=== PATIENT | male | born 1980 | race Caucasian/White ===

== ENCOUNTER 2018-03-09 13:06 | Observation (INO) ==
--- NOTE | 2018-03-09 13:09 | ED ---
HPI General Chief complaint: Chest Pain Stated complaint: Chest pain Time Seen by Provider: 03/09/18 13:08 Source: patient Mode of arrival: EMS Limitations: no limitations History of Present Illness HPI narrative: 37-year-old male with no significant medical history presents emergency department for evaluation of chest pain and palpitations. Patient states that he has been drinking alcohol and smoking [place] the [place] when his heart began to palpitate. He thought maybe he was having an anxiety attack but it persisted and became mildly short of breath and he had a substernal chest pain more to the left. It does not radiate anywhere. It has persisted. He denies any nausea or vomiting. He denies any diaphoresis. He tells me that "something is wrong with his heart" but he is uncertain what. He tells me something with his mitral valve he thinks. He denies any recent drug use. States he has a long-standing history of cocaine and alcohol use but has not used in over 10 years. Denies IV drug use. Denies any recent illnesses, fever, or chills. He has no other symptoms to report at this time. Related Data Home Medications Medication Instructions Recorded Confirmed No Known Home Medications 03/09/18 03/09/18 Allergies Allergy/AdvReac Type Severity Reaction Status Date / Time No Known Allergies Allergy Unverified 03/09/18 13:14 Review of Systems Except as stated in HPI: all other systems reviewed are negative PMFSH History History Provided By: Patient Medical History Medical History HTN (hypertension) (Acute) Social History Social History Second Hand Smoke Exposure: Yes Smoking Status: Current every day smoker Tobacco Type: Cigarettes How Often Do You Have a Drink Containing Alcohol: 4 or more times a week Recent Travel in [facility] within the Last 8 Weeks: No Exam Narrative Exam Narrative: GENERAL: Well-nourished male patient, in no acute distress. SKIN: Focused skin assessment warm/dry. HEAD: Atraumatic. Normocephalic. EYES: Pupils equal and round. No scleral icterus. No injection or drainage. ENT: No nasal bleeding or discharge. Mucous membranes pink and moist. NECK: Trachea midline. No JVD. CARDIOVASCULAR: Elevated rate and rhythm. No murmur appreciated. RESPIRATORY: No accessory muscle use. Clear to auscultation. Breath sounds equal bilaterally. GASTROINTESTINAL: Abdomen soft, non-tender, nondistended. Hepatic and splenic margins not palpable. MUSCULOSKELETAL: No obvious deformities. No clubbing. No cyanosis. No edema. NEUROLOGICAL: Awake and alert. No obvious cranial nerve deficits. Motor grossly within normal limits. Normal speech. PSYCHIATRIC: Appropriate mood and affect; insight and judgment normal. Course Initial Documented Vital Signs Pulse Rate 95 H 03/09/18 13:12 Respiratory Rate 19 03/09/18 13:12 Blood Pressure 122/65 03/09/18 13:12 Pulse Oximetry 94 L 03/09/18 13:12 Last Documented Vital Signs Pulse Rate 95 H 03/09/18 13:12 Respiratory Rate 19 03/09/18 13:12 Blood Pressure 122/65 03/09/18 13:12 Pulse Oximetry 96 03/09/18 13:16 Medical Decision Making MDM Narrative Medical decision making narrative: 37-year-old male presents emergency department for evaluation of chest pain. Patient appears well. He is moderately anxious. He is given aspirin. Lab work is reviewed and without acute concern. Patient will be admitted observation of the chest pain center for further evaluation and disposition per them. Differential Diagnosis Differential Diagnosis: ACS vs electrolyte abnormality versus pleuritic pain versus chest wall pain Medical Records Medical records reviewed: Yes I reviewed the patient's medical records. Lab Data Lab results reviewed: Yes I reviewed the patient's lab results. Result diagrams: 03/09/18 13:20 03/09/18 13:20 Lab Results 03/09/18 03/09/18 03/09/18 Range/Units 13:20 13:20 13:20 WBC 6.9 (4.0-11.0) th/mm3 RBC 4.73 (4.50-5.90) mil/mm3 Hgb 15.7 (13.0-17.0) gm/dL Hct 44.5 (39.0-51.0) % MCV 94.0 (80.0-100.0) fL MCH 33.2 (27.0-34.0) pg MCHC 35.4 (32.0-36.0) % RDW 12.5 (11.6-17.2) % Plt Count 262 (150-450) th/mm3 MPV 6.8 L (7.0-11.0) fL Neut % (Auto) 52.9 (16.0-70.0) % Lymph % (Auto) 38.2 (9.0-44.0) % Bleckley % (Auto) 7.5 (0.0-8.0) % Eos % (Auto) 0.3 (0.0-4.0) % Baso % (Auto) 1.1 (0.0-2.0) % Neut # (Auto) 3.6 (1.8-7.7) th/mm3 Lymph # (Auto) 2.6 (1.0-4.8) th/mm3 Bleckley # (Auto) 0.5 (0.0-0.9) th/mm3 Eos # (Auto) 0.0 (0.0-0.4) th/mm3 Baso # (Auto) 0.1 (0.0-0.2) th/mm3 WBC Differential . Differential Comment Auto diff final PT 10.5 (9.8-11.6) sec INR 1.0 Ratio APTT 28.7 (24.3-30.1) sec Sodium 147 H (136-145) meq/L Potassium 3.7 (3.5-5.1) meq/L Chloride 113 H (98-107) meq/L Carbon Dioxide 25.1 (21.0-32.0) meq/L Anion Gap 9 (5-15) meq/L BUN 13 (7-18) mg/dL Creatinine 1.28 (0.60-1.30) mg/dL Estimated GFR 63 L (>89) mL/min Random Glucose 90 (74-106) mg/dL Calcium 8.2 L (8.5-10.1) mg/dL Total Creatine Kinase 236 (39-308) U/L CK-MB (CK-2) 1.7 (0.5-3.6) ng/mL Troponin I Less than 0.02 L (0.02-0.05) ng/mL Imaging Data Radiologist's impression: Chest X-Ray 03/09/18 13:14 CONCLUSION: No active disease. Discharge Plan Discharge Disposition Patient Disposition: 30 Still Patient Discharge Condition Condition: Stable Discharge Details Diagnosis: Chest pain Physicians Team ED Provider: Preston Burnett ED Midlevel Provider: Elodia Borja Primary Care Provider: Primary Care Kalani Michelle Attending Provider: Kris Baeza Status ED Status: Admitted Observation Patient
[2018-03-09] MEDS ORDERED: Aspirin 325 MG Tablet PO ONE (13:14)
[2018-03-09 13:31] LABS: Baso # (Auto) 0.1 th/mm3 (0.0-0.2); Baso % (Auto) 1.1 % (0.0-2.0); Eos % (Auto) 0.3 % (0.0-4.0); Hematocrit 44.5 % (39.0-51.0); Hemoglobin 15.7 gm/dL (13.0-17.0); Lymph # (Auto) 2.6 th/mm3 (1.0-4.8); Lymph % (Auto) 38.2 % (9.0-44.0); Mean Corpuscular HGB Conc 35.4 % (32.0-36.0); Mean Corpuscular Hemoglobin 33.2 pg (27.0-34.0); Mean Platelet Volume 6.8 fL (7.0-11.0); Mono # (Auto) 0.5 th/mm3 (0.0-0.9); Mono % (Auto) 7.5 % (0.0-8.0); Neut # (Auto) 3.6 th/mm3 (1.8-7.7); Neut % (Auto) 52.9 % (16.0-70.0); Platelet Count 262 th/mm3 (150-450); Red Blood Count 4.73 mil/mm3 (4.50-5.90); Red Cell Distribution Width 12.5 % (11.6-17.2); White Blood Count 6.9 th/mm3 (4.0-11.0)
[2018-03-09 13:42] LABS: Activated Partial Thrombo Time 28.7 sec (24.3-30.1); Prothrombin Time 10.5 sec (9.8-11.6)
[2018-03-09 14:08] LABS: Anion Gap 9 meq/L (5-15); Blood Urea Nitrogen 13 mg/dL (7-18); Calcium 8.2 mg/dL (8.5-10.1); Carbon Dioxide 25.1 meq/L (21.0-32.0); Chloride 113 meq/L (98-107); Glomerular Filtration Rate 63 mL/min (>89); Glucose,Random 90 mg/dL (74-106); Potassium 3.7 meq/L (3.5-5.1); Sodium 147 meq/L (136-145)
--- NOTE | 2018-03-09 14:11 | XR ---
EXAM DATE: 03/09/2018 1:43 PM EDT AGE/SEX: 37 years / Male INDICATIONS: . Chest Pain CLINICAL DATA: This is the patient's initial encounter. Patient reports that signs and symptoms have been present for 1 day and indicates a pain score of 7/10. MEDICAL/SURGICAL HISTORY: None. None. COMPARISON: No prior exams available for comparison. FINDINGS: PA and lateral views of the chest demonstrate the lungs to be symmetrically aerated without evidence of mass, infiltrate or effusion. The cardiomediastinal contours are unremarkable. Osseous structures are intact. CONCLUSION: No active disease. Electronically signed by: Cullen Willoughby MD 03/09/2018 2:10 PM EDT
[2018-03-09 14:12] LABS: Creatine Kinase 236 U/L (39-308)
[2018-03-09 14:24] LABS: Creatine Kinase MB 1.7 ng/mL (0.5-3.6)
[2018-03-09 14:58] VITALS: O2SAT 96
--- NOTE | 2018-03-09 15:17 | P.HPCA ---
History of Present Illness Primary Care Physician: No Primary Care Physician Chief Complaint: Palpations History of Present Illness: 37-year-old male with no significant medical history presents emergency room for further evaluation of palpitations. States he has been out drinking all evening and finished drinking at 7 AM. Proceeded to the beach when he experienced palpitations. Endorses similar pain in the past [facility] Was told he had something wrong with his heart. 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 Endorses he drinks 1 pint of vodka daily and smokes 1 pack cigarettes daily. Denies any known coronary artery disease. Reports Lexiscan completed last year and was told "something was wrong with my heart." He is also concerned about left sided numbness and tingling. Intermittent for months, today seems to be worse. Described as an burning, numbness sensation. Denies weakness of area. Endorse past left shoulder surgery, but does not feel discomfort could be related to the injury but fears discomfort in cardiac related. Left arm numbness constant for 24 hours, made better when he elevates arm. - Diagnosis (1) Heart palpitations (2) Alcohol abuse (3) Tobacco abuse (4) Radiculopathy PMFSH - History History Provided By: Patient - Medical History Medical History: Medical History (Last Updated 03/09/18 @ 16:53 by JASON Huitron) HTN (hypertension) Hepatitis C - Tobacco History Second Hand Smoke Exposure: Yes Tobacco Use In Past 30 Days: Yes Smoking Status: Current every day smoker Tobacco Type: Cigarettes Cigarettes Per Day: 1 - Alcohol History How Often Do You Have a Drink Containing Alcohol: 4 or more times a week (1 pint of vodka daily, last drank 0700 am.) - Substance Use Type Crack/Cocaine Type: COCAINE Status: Sustained Remission (quit cocaine 10 years ago.) - Travel History Recent Travel in the [place] Within the Last 8 Weeks: No - Immunization History Tetanus Immunization: Unsure Hx Influenza Vaccine This Season: No Medications and Allergies Active Medications: Active Medications Nitroglycerin (Nitrostat Sl) 0.4 mg SL Q5M PRN PRN Reason: CHEST PAIN Allergies Allergy/AdvReac Type Severity Reaction Status Date / Time No Known Allergies Allergy Unverified 03/09/18 13:14 Home Medications Medication Instructions Recorded Confirmed Type No Known Home Medications 03/09/18 03/09/18 History Exam Vital signs: Vital Signs 03/09/18 13:12 03/09/18 13:16 Pulse Rate 95 H Respiratory Rate 19 Blood Pressure 122/65 Pulse Oximetry 94 L 96 Intake & Output 03/08/18 03/09/18 03/09/18 18:59 06:59 18:59 Weight 106.633 kg Narrative: GENERAL: Alert WN, WD, NAD, male in no acute distress who request to leave blanket over his head during exam. Sarcastic, rude, and disrespectful appears intoxicated. HEAD: NC, AT NECK: Supple, no masses, trachea midline CV: RRR, without murmur, rub, gallop, no JVD. No carotid bruits. Chest wall nontender with palpation. RESP: Clear lungs throughout bilateral, no crackles, wheeze, rhonchi, symmetrical chest rise, nonlabored, able to speak in full sentences ABD: Soft, NT, ND, no masses, positive bowel tones EXT: Pulses +2x4, no dependent edema MS: Normal tone x4 extremities, nontender, no obvious deformities, full range of motion NEURO: CN II through CN XII grossly intact, motor strength 5/5 PSYCH: A+O x3, flat affect, appropriate speech, bizarre mood, questionable insight and judgment SKIN: Normal turgor, normal texture, no lesions, no rashes, brisk cap refill, even hair distribution, multiple tattoos, unkempt Results 03/09/18 13:20 03/09/18 13:20 Cardiac Enzymes 03/09/18 Range/Units 13:20 CK-MB (CK-2) 1.7 (0.5-3.6) ng/mL Troponin I Less than 0.02 L (0.02-0.05) ng/mL Coagulation 03/09/18 Range/Units 13:20 PT 10.5 (9.8-11.6) sec APTT 28.7 (24.3-30.1) sec CBC 03/09/18 Range/Units 13:20 WBC 6.9 (4.0-11.0) th/mm3 RBC 4.73 (4.50-5.90) mil/mm3 Hgb 15.7 (13.0-17.0) gm/dL Hct 44.5 (39.0-51.0) % Plt Count 262 (150-450) th/mm3 Neut # (Auto) 3.6 (1.8-7.7) th/mm3 Lymph # (Auto) 2.6 (1.0-4.8) th/mm3 Ellis # (Auto) 0.5 (0.0-0.9) th/mm3 Eos # (Auto) 0.0 (0.0-0.4) th/mm3 Baso # (Auto) 0.1 (0.0-0.2) th/mm3 Comprehensive Metabolic Panel 03/09/18 Range/Units 13:20 Sodium 147 H (136-145) meq/L Potassium 3.7 (3.5-5.1) meq/L Chloride 113 H (98-107) meq/L Carbon Dioxide 25.1 (21.0-32.0) meq/L BUN 13 (7-18) mg/dL Creatinine 1.28 (0.60-1.30) mg/dL Calcium 8.2 L (8.5-10.1) mg/dL Intake and Output 03/09/18 03/09/18 03/09/18 06:59 14:59 22:59 Other: Weight 106.633 kg Patient Weight 03/10/18 06:59 Weight 106.633 kg EKG interpretations - EKG EKG results cardiology: sinus rhythm, normal axis, normal QRS, normal ST/T Caprini VTE Risk Assessment Caprini VTE Risk Assessment: No/Low Risk (score <= 1) Caprini Risk Assessment Model: Point Value = 1 Point Value = 2 Point Value = 3 Point Value = 5 Age 41-60 Minor surgery BMI > 25 kg/m2 Swollen legs Varicose veins or History of unexplained or recurrent spontaneous Oral contraceptives or hormone replacement Sepsis (< 1 month) Serious lung disease, including pneumonia (< 1 month) Abnormal pulmonary function Acute myocardial infarction Congestive heart failure (< 1 month) History of inflammatory bowel disease Medical patient at bed rest Age 61-74 Arthroscopic surgery Major open surgery (> 45 min) Laparoscopic surgery (> 45 min) Malignancy Confined to bed (> 72 hours) Immobilizing plaster cast Central venous access Age >= 75 History of VTE Family history of VTE Factor V Leiden Prothrombin [id number] Lupus anticoagulant Anticardiolipin antibodies Elevated serum homocysteine Heparin-induced thrombocytopenia Other congenital or acquired thrombophilia Stroke (< 1 month) Elective arthroplasty Hip, pelvis, or leg fracture Acute spinal cord injury (< 1 month) Prophylaxis Regimen: Total Risk Factor Score Risk Level Prophylaxis Regimen 0-1 Low Early ambulation 2 Moderate Order ONE of the following: *Sequential Compression Device (SCD) *Heparin 5000 units SQ BID 3-4 Higher Order ONE of the following medications: *Heparin 5000 units SQ TID *Enoxaparin/Lovenox 40 mg SQ daily (WT < 150 kg, CrCl > 30 mL/min) *Enoxaparin/Lovenox 30 mg SQ daily (WT < 150 kg, CrCl > 10-29 mL/min) *Enoxaparin/Lovenox 30 mg SQ BID (WT < 150 kg, CrCl > 30 mL/min) AND/OR *Sequential Compression Device (SCD) 5 or more Highest Order ONE of the following medications: *Heparin 5000 units SQ TID (Preferred with Epidurals) *Enoxaparin/Lovenox 40 mg SQ daily (WT < 150 kg, CrCl > 30 mL/min) *Enoxaparin/Lovenox 30 mg SQ daily (WT < 150 kg, CrCl > 10-29 mL/min) *Enoxaparin/Lovenox 30 mg SQ BID (WT < 150 kg, CrCl > 30 mL/min) AND *Sequential Compression Device (SCD) Assessment and Plan - Assessment (1) Heart palpitations Code(s): R00.2 - Palpitations Status: Acute Plan: Admitted to chest pain center. Continue ruling out ACS, although discomfort is not digestive of an anginal component. Seen and evaluated by Dr. Kris Baeza. Obtain cardiac medical records from [facility]. Monitor on telemetry overnight. Further evaluation in a.m. No plans for further cardiac testing at this time. Patient agreeable to plan of care, although has stated multiple times during interview he thinks he is fine and would like to go home. Made aware if he chooses to leave he will be signing out AGAINST MEDICAL ADVICE. Verbalized understanding and agrees to stay at this time. (2) Alcohol abuse Code(s): F10.10 - Alcohol abuse, uncomplicated Status: Chronic Plan: Counseled on alcohol abuse. Reinforced needed. CIWA scale with medications. Drinks at least 1 pink vodka daily, last drink 0700. (3) Tobacco abuse Code(s): Z72.0 - Tobacco use Status: Chronic Plan: Strongly encouraged and stressed importance of tobacco cessation. Instructed to quit smoking. (4) Radiculopathy Code(s): M54.10 - Radiculopathy, site unspecified Status: Acute Plan: No acute findings. Follow up with a primary care provider for further evaluation. (4) Radiculopathy Qualifiers: Spinal region: unspecified Qualified Code(s): M54.10 - Radiculopathy, site unspecified
[2018-03-09] MEDS ORDERED: Haloperidol Inj 5 MG/ML Ampul IV.PUSH PRN (16:44)
[2018-03-09] MEDS ORDERED: LORazepam 1 MG Tablet PO PRN (16:44)
[2018-03-09 17:19] LABS: Creatine Kinase 217 U/L (39-308)
[2018-03-09 21:36] LABS: Creatine Kinase 211 U/L (39-308)
--- NOTE | 2018-03-10 09:13 | P.PNCA ---
Subjective Interval history: No complaints overnight. Slept well. Physical Exam Vital signs: Vital Signs 03/09/18 13:12 03/09/18 13:16 03/09/18 16:00 Temperature 98.1 F Pulse Rate 95 H 83 Respiratory Rate 19 18 Blood Pressure 122/65 132/84 Pulse Oximetry 94 L 96 98 03/09/18 19:19 03/09/18 19:45 03/09/18 23:27 Temperature 98.2 F 97.6 F Pulse Rate 88 85 67 Respiratory Rate 18 18 Blood Pressure 119/56 L 132/73 Pulse Oximetry 95 96 03/10/18 03:05 03/10/18 03:15 03/10/18 07:09 Temperature 97.6 F Pulse Rate 69 59 L 79 Respiratory Rate 18 Blood Pressure 126/72 Pulse Oximetry 96 03/10/18 07:52 Temperature 98.2 F Pulse Rate 65 Respiratory Rate 20 Blood Pressure 136/80 Pulse Oximetry Intake & Output 03/09/18 03/10/18 03/10/18 18:59 06:59 18:59 Intake Total 800 / 800 Balance 800 / 800 Weight 106.594 kg Intake: Oral 800 / 800 Other: # Voids 1 2 Date of Last Bowel Movement 03/08/18 Weight On Admission 106.633 kg Narrative: male easily awakens from sleep. No acute distress. Regular rate and rhythm, no murmur rubs or gallops. Telemetry reviewed from overnight, no arrhythmias identified. - Constitutional no acute distress Assessment and Plan - Assessment (1) Heart palpitations Code(s): R00.2 - Palpitations Status: Acute Plan: Admitted chest pain center. Previously seen evaluated by Dr. Kris Baeza. ACS ruled out 3 sets of EKGs. Telemetry reviewed did not show any cardiac arrhythmias. Unfortunately was unable to obtain medical records from Dr. [facility] in [place]. Instructed to follow-up with supply crib attendant in [place] upon returning home. Verbalized understanding and agreeable to plan of care. (2) Alcohol abuse Code(s): F10.10 - Alcohol abuse, uncomplicated Status: Chronic Plan: Counseled on alcohol abuse. Reinforced needed. CIWA scale with medications. (3) Tobacco abuse Code(s): Z72.0 - Tobacco use Status: Chronic Plan: Strongly encouraged and stressed importance of tobacco cessation. Instructed to quit smoking.
--- NOTE | 2018-03-10 12:59 | ECG ---
Date Performed: 03/09/2018 Time Performed: 16:42:03 PTAGE: 37 years EKG: Sinus rhythm MODERATE INTRAVENTRICULAR CONDUCTION DELAY BORDERLINE ECG PREVIOUS TRACING : 03/09/2018 13.13 Since previous tracing, no significant change noted DOCTOR: Kris Baeza Interpretating Date/Time 03/10/2018 12:58:51
--- NOTE | 2018-03-10 12:59 | ECG ---
Date Performed: 03/09/2018 Time Performed: 19:53:23 PTAGE: 37 years EKG: Sinus rhythm POSSIBLE RIGHT VENTRICULAR CONDUCTION DELAY BORDERLINE ECG PREVIOUS TRACING : 03/09/2018 16.42 Since previous tracing, no significant change noted DOCTOR: Kris Baeza Interpretating Date/Time 03/10/2018 12:57:47
--- NOTE | 2018-03-10 13:00 | ECG ---
Date Performed: 03/09/2018 Time Performed: 13:13:52 PTAGE: 37 years EKG: Sinus rhythm INCOMPLETE RIGHT BUNDLE BRANCH BLOCK MODERATE VOLTAGE CRITERIA FOR LVH, CONSIDER NORMAL VARIANT CARLITAD CARE [facility] AT [facility] ECG INTERPRETATION BASED ON A DEFAULT AGE OF 40 YEARS NO PREVIOUS TRACING DOCTOR: Kris Baeza Interpretating Date/Time 03/10/2018 12:59:33
[2018-03-12 19:33] VITALS: BP 136/80; PULSE 63; RESP 20
[2018-03-12 19:46] VITALS: TEMP 98.2
== END 2018-03-10 15:03 | disposition home or self-care (01) ==
LOC: NEPFCDU 13:06 → NEPE 13:06 → NEDA 13:06 → NEPFCDU 16:05
DX: R20.0 Anesthesia of skin; I10 Essential (primary) hypertension; R06.02 Shortness of breath; F17.210 Nicotine dependence, cigarettes, uncomplicated; R07.9 Chest pain, unspecified; R00.2 Palpitations; F14.11 Cocaine abuse, in remission; B19.20 Unspecified viral hepatitis C without hepatic coma; F10.10 Alcohol abuse, uncomplicated; M54.10 Radiculopathy, site unspecified